=== PATIENT | male | born 1970 | race African-American/Black ===

== ENCOUNTER 2016-08-20 06:19 | Emergency (ER) | payer BC ==
[2016-08-20] MEDS ORDERED: METHYLPREDNISOLONE SOD SUCC/PF 40 MG/ML VIAL IV ONE (07:09)
--- NOTE | 2016-08-20 07:13 | ERNOTE ---
Integumentary HPI - General Presenting Symptoms: rash Time Seen by Provider: 08/20/16 07:04 Source: patient Exam Limitations: no limitations - Immun/Allergies/Home Medications Immunizations: IMMUNIZATION HX Immunizations Up to Date Yes History of Influenza Vaccine No Hx Pneumococcal Vaccination No Allergies/Adverse Reactions: Allergies Allergy/AdvReac Type Severity Reaction Status Date / Time No Known Allergies Allergy Unverified 10/30/13 05:10 Home Medications: HOME MEDICATIONS Diphenhydramine HCl [Benadryl] 25 mg PO QID PRN #30 capsule 08/20/16 [Last Taken Unknown] - History of Present Illness Narrative: Patient comes in for itchy rash on belly, right and left arms and right legs. He has been in the heat, cutting trees and exposed to many allergens in the past two days Review of Systems - Review of Systems Constitutional: Present: no symptoms reported EYE: Present: no symptoms reported ENT: Present: no symptoms reported Respiratory: Present: no symptoms reported Cardiology: Present: no symptoms reported Gastrointestinal/Abdominal: Present: no symptoms reported Genitourinary: Present: no symptoms reported Musculoskeletal: Present: no symptoms reported Skin: Present: See HPI - Patient's Past Medical History Patient History - Medical: No pertinent hx Patient History - Cardiac/Respiratory: No pertinent hx Patient History - Cancer: No Hx of Cancer Patient History - Surgical Procedures: Other Patient History - Other: None - Social History Living Situations: significant other Abuse History: No History of abuse Psych History: No pertinent hx Smoking Status: Never smoker Have you smoked in the past 12 months: No Do you dip or chew tobacco: No Alcohol Use: heavy Drug Use: none - Immunizations Immunizations Up to Date: Yes Hx Pneumococcal Vaccination: No History of Influenza Vaccine: No Physical Exam - Physical Exam General Appearance: Present: wd/wn, alert, no apparent distress Head Exam: Present: normal inspection, no evidence of injury Ears, Nose, Throat: Present: normal ENT inspection Neck: Present: normal inspection, nontender Respiratory: Present: no respiratory distress, normal breath sounds, no accessory muscle use, chest nontender, lungs clear Gastrointestinal/Abdominal: Present: normal bowel sounds, nontender, nondistended, soft, no organomegaly - healed midline incision from a previous surgery noted, Extremity Exam: Present: normal inspection, normal range of motion Skin Exam: Present: skin rash - Patient has a reddish rash on belly and right lower leg on the medial aspect. The rash is reddish and raised, maculopapular and in areas it appears to have been scratched as I see scratch castaneda on patient. ED Progress - Vital Signs Vital Signs: Vital Signs 08/20/16 06:22 Temperature 36.6 C Pulse Rate 83 Respiratory 16 Rate Blood Pressure 161/90 O2 Sat by Pulse 100 Oximetry - Progress/Reassessment Chief Complaint: Rash Departure Clinical Impression: Contact dermatitis Qualifiers: Contact dermatitis type: unspecified Contact dermatitis trigger: unspecified trigger Qualified Code(s): L25.9 - Unspecified contact dermatitis, unspecified cause - Departure Disposition: Home self-care Condition: Good Instructions: Contact Dermatitis, [id number] Referrals: Jesus Chahal MD [Primary Care Provider] - Prescriptions: Diphenhydramine HCl [Benadryl] 25 mg PO QID PRN #30 capsule PRN Reason: Pain
[2016-08-20] MEDS ORDERED: METHYLPREDNISOLONE SOD SUCC/PF 125 MG/2 ML VIAL ONE (07:25)
[2016-08-20 07:39] VITALS: BP 173/92
== END 2016-08-20 07:37 | disposition home or self-care (01) ==
LOC: ER 06:19
DX: L25.9 Unspecified contact dermatitis, unspecified cause (principal)